=== PATIENT | male | born 1955 | race Caucasian/White ===

== ENCOUNTER 2017-07-15 07:29 | Emergency (ER) | payer BC ==
[~2017-07-15] VITALS: Ht 185.4 cm; Wt 122.5 kg
[~2017-07-15 07:29] MED LIST: ASPIRIN 81MG TA81 MG PO; MICARDIS80 MG PO; NEXIUM40 MG PO
[2017-07-15] MEDS ORDERED: HYZAAR1 TA1 PO (07:31)
[2017-07-15] MEDS ORDERED: HYDROCHLOROTH12.5 M1 PO (07:32)
[2017-07-15] MEDS ORDERED: OMEPRAZOLE40 MG PO (07:32)
--- NOTE | 2017-07-15 07:47 | Emergency Room Report ---
History of Present Illness Time Seen by [id number] Presenting Problem in Triage Pt arrived:Walked Presenting Problem:PT REPORTS SAW PCP 1 WEEK AGO, WAS REFERRED TO CARDIOLOGY R/T L SIDED CP. PT REPORTS SAW ARBORIST ON 07/14/17, BP MEDICATIONS WERE CHANGED, PT STATES AT THAT TIME PT BEGAN HAVING INCREASED BP. PT REPORTS L SIDED CP HAS CONTINUED, STATED YESTERDAY BEGAN HAVING PAIN BETWEEN HIS SHOULDER BLADES ALSO. Onset of symptoms date/time:/ or onset unknown for:MEDICAL HX UNKNOWN Treatment Prior to Arrival: TRAFFIC WORKER Provided by: Sepsis Risk Assessment: Temp: 98.1 B/P: 152/85 MAP: 107 Pulse: 63 Resp: 18 Recent fever? N Clinical Suspician of Infection? N Mental Status: 1 - Regular (Normal Baseline) Sepsis Risk:Low Sepsis Risk Have you (or family members/close friends) recently traveled outside the [place]? N If Yes, where/when: Have you had exposure to infectious disease within the past month? N TB? Other? Specify: Source patient, RN notes reviewed, family, old records Exam Limitations no limitations Comment pt with ongoing chest pain with assoc bp elevated and presents today - he saw card last week for similiar pain and has had cath in 2016-pt has been compliant with meds Cardiac Chest Pain Chest pain indicative of cardiac Yes Timing/Duration 4-6 hours, constant Severity/Quality moderate, pressure Location central Chest Pain Radiation back Activities at Onset light activity Nitro Today/Relief no nitro taken today Aspirin Treatment Today 81 mg x 4, provided by ED Beta mandie treatment today no beta mandie taken Cardiac risk factors Uncontrolled HTN, + family history Prior Workup/Intervention cardiac cath Timing/Duration this morning Severity moderate ALLERGIES Coded Allergies: penicillin G (Mild, 11/22/15) Home Medications Reported Medications Telmisartan (Micardis) 80 MG PO DAILY ASPIRIN (Aspirin) 81 MG PO DAILY Hydrochlorothiazide (Hydrochlorothiazide 12.5MG) 12.5 MG PO DAILY Omeprazole (Omeprazole 40MG) 40 MG PO DAILY #90 (John BUNN,Vesna Solo) History Medical History General CAD? No Angina: Yes GA: No Hypertension? Yes Hyperlipidemia? No CHF? No DVT? No PE? No COPD? No Asthma? No Anemia? No GERD? Yes Gastric ulcers? No GI Bleed? No Hernia? No Thyroid Problems? No Hypothyroidism? No CVA? No Seizures? No Diabetes? No Insulin Dependent: No Insulin Pump: No Home FSBS? No Renal Insuffiency? No End Stage Renal Disease? No UTI? No Stones? No BPH? No GB Disease: Yes Nephritic Syndrome? No Asplenia? No Hepatitis? No Sickle Cell Disease? No Arthritis? No Migraines? No Cataracts? No Glaucoma? No MRSA? No HIV? No TB? No Anxiety? No Depression? No Cancer? No More? No Immunization Hx DT/Tetanus Unknown Flu NEVER Pneumonia NEVER Surgical Hx Previous Surgery?Y Cholecystectomy VASECTOMY Cataract(s) Tonsils And/Or Adenoids CARDIAC CATH X3 Family History Family Hx Diabetes Yes CAD Yes Hypertension No Hyperlipidemia No Cancer No TB No Social History Smoking Hx Smoker: Never Smoker Tobacco: No Alcohol Alcohol: No Drugs none (Vesna Lopez MD) Review of Systems All Other Systems Reviewed and Negative Constitutional denies fever Eyes denies drainage ENT denies: ear pain, epistaxis, throat pain. Respiratory denies cough, denies shortness of breath, denies wheezing Cardiovascular see HPI, chest pain, denies palpitations, denies syncope Gastrointestinal denies abdominal pain, denies diarrhea, denies vomiting Genitourinary denies: dysuria, frequency, hesitancy, hematuria. Musculoskeletal denies back pain, denies joint pain, denies joint swelling, denies neck pain Skin denies rash Psychiatric/Neurological see HPI, headache, denies seizure (Vesna Lopez MD) Physical Exam Vital Signs Vital Signs Date Time Temp Pulse Resp B/P Pulse O2 O2 Flow FiO2 Ox Delivery Rate 07/15 1151 97.9 64 18 134/87 95 07/15 1059 64 18 105/68 97 07/15 1006 59 18 130/83 97 07/15 0922 60 18 133/61 97 07/15 0833 64 18 138/86 96 07/15 0729 98.1 63 18 152/85 97 - WBC >12,000 or <4,000 or 10% bands? 2 or more SIRS Criteria Met? B/P:138/86 MAP:107 Creatinine >2.0? UA output<0.5ml/kg/hr for 2 hrs? Platelet count >100,000? Lactate >2.0mmol/1? INR >1.2 or PTT > than 60 sec? Evidence of Organ Dysfunction? Provider documented clinical suspician of infection? N Sepsis Criteria Count: 0 Sepsis Risk: Low Sepsis Risk General Appearance no apparent distress Eye Exam - bilateral eye PERRL, bilateral eye EOMI Ear, Nose, Throat normal ENT inspection Neck supple Respiratory Status No: respiratory distress. Lung Sounds bilateral: lungs clear. Cardiovascular regular rate/rhythm, systolic murmur Peripheral Pulses Pulses normal Yes Gastrointestinal soft, no organomegaly Extremities normal inspection Strength 4 Upper Ext (L), 4 Upper Ext (R), 4 Lower Ext (L), 4 Lower Ext (R) Neurologic alert, manufacturing engineering technologist II-XII nml as tested, no motor/sensory deficits Reflexes Reflexes normal No Mental status normal mood/affect Skin intact (John BUNN,Vesna Banda) Medical Decision Making LABS/Meds/Orders Pt receiving controlled substance in ED? No Results/Orders Laboratory Tests 07/15/17 1012: Troponin I < 0.02 07/15/17 0730: Sodium 140, Potassium 4.1, Chloride 105, Carbon Dioxide 31, BUN 14, Creatinine 0.9, Estimated Creat Clear 153, Estimated GFR (MDRD) 86, Glucose 117 H, Calcium 8.5, Total Bilirubin 1.0, AST 15, ALT 27, Alkaline Phosphatase 86, Creatine Kinase 188, CK-MB (CK-2) Rel Index 0.3, CK and CKMB Interp 0.5, Troponin I < 0.02, Total Protein 6.9, Albumin 3.5, Globulin 3.4 H, Albumin/Globulin Ratio 1.0 L, WBC 7.5, RBC 4.75, Hgb 15.3, Hct 43.9, MCV 92.5, RDW 13.0, Plt Count 248 , MPV 7.8, Gran % 60.1, Gran # 4.5, Lymphocytes % 32.9, Monocytes % 5.3, Eosinophils % 1.3, Basophils % 0.4, Lymphocytes # 2.5, Monocytes # 0.4, Eosinophils # 0.1, Basophils # 0.0, PUBS MCHC 34.7, MCH 32.1 H Current Medication Orders Sig/Syeda Start time Last Medication Dose Route Stop Time Status Admin Famotidine 0 .STK-MED ONE 07/15 932 DC IV Metoclopramide HCl 0 .STK-MED ONE 07/15 931 DC .ROUTE Famotidine 20 MG ONCE ONE 07/15 900 DC 07/15 IV 07/15 09 0934 Metoclopramide HCl 10 MG ONCE ONE 07/15 09 DC 07/15 IVP 07/15 901 0933 Sodium Chloride 8 ML ONCE ONE 07/15 900 DC IV 07/15 09 Aspirin 324 MG ONCE ONE 07/15 0745 DC 07/15 PO 07/15 0746 0733 Sodium Chloride 10 ML PRN PRN 07/15 0745 DCD IV 07/16 0731 Orders Procedure Date/time Status TROPONIN I 07/15 1030 Complete ELECTROCARDIOGRAM REQUEST 07/15 0732 Active IV SALINE LOCK 07/15 0732 Active CBC WITH AUTO DIFF 07/15 0732 Complete CARDIAC ENZYMES 07/15 0732 Complete CHEM 12 PROFILE 07/15 0732 Complete 12 LEAD EKG-ADONAY (INITIAL) 07/15 UNK Active CM/EKG CM/planning associate Rhythm Normal Sinus Rhythm EKG compared w/(date of old), non-spec. ST/Twave chgs XRAY/CT/US XRAY/CT/US 1 XRAY chest XR interpretation by reviewed by me Xray Results normal/NAD XRAY/CT/US 2 Ultrasound cardiac echo US Interpretation by discussed w/radiologist US results normal HARRISON Score for N-Stemi/Angina HARRISON N-STEMI SCORE HARRISON N-STEMI SCORE Response Value Age of patient Less than 65 yrs 0 Number of risk factors for CAD Presence of 3 or more 1 Prior coronary artery stenosis (seen in angiography) Less than 50% 0 ST-Segment deviation on ECG (>1 min) Absent 0 Prior aspirin intake ASA intake in last 7 days 1 Severe anginal chest pain 2 or more episodes/24hr 1 Elevated cardiac markers(CK-MB or troponin) Absent 0 Total 3 Risk Stratification 3-4= Medium Risk Patients (John BUNN,Vesna Banda) Progress - 11:39 AM: Patient seen by cardiology and they recommend discharge. They have transmitted prescriptions. (Jonatan Adams MD) Departure Departure Time of Disposition 0856 Disposition Still a Patient Clinical Impression Primary Impression: Chest pain Qualifiers: Chest pain type: unspecified Qualified Code: R07.9 - Chest pain, unspecified Secondary Impressions: HTN (hypertension) Qualifiers: Hypertension type: essential hypertension Qualified Code: I10 - Essential (primary) hypertension Condition STABLE Referrals Janneth Ramirez APRN (Family) discussed with [facility] Critical Care Critical Care No (Vesna Lopez MD) Departure Patient Instructions DI for Chest Pain Additional Instructions Additional instructions for CHEST PAIN: Follow-up with cardiology as instructed. Return immediately if worsening chest pain, vomiting, shortness of breath, fever, coughing of blood. (Jonatan Adams MD) at 0857 at 1600
[2017-07-15 07:56] LABS: HEMOGLOBIN 15.3 g/dL (14.1-18.0); LYMPH # 2.5 K/mm3 (0.7-4.5); LYMPH % 32.9 % (10-50)
[2017-07-15 08:15] LABS: BUN 14 mg/dL (7-18); GFR (ESTIMATED) 86 ML/MIN (>60)
--- NOTE | 2017-07-15 09:40 | RADIOLOGY REPORT PS360 ---
CHEST(2 VIEWS-NOT PORTABLE) HISTORY: CP ORDERING PHYSICIAN: Vesna Lopez MD PATIENT AGE: 61 years COMPARISON: FINDINGS: The cardiomediastinal silhouette and pulmonary vascularity are within normal limits. The lungs are clear without infiltrates, suspicious nodules, or pleural effusions. No acute bony abnormalities. IMPRESSION: Negative chest, no acute finding
--- NOTE | 2017-07-15 11:42 | CONSULT NOTE ---
Standard Demographics Patient Demo Date of Consultation: 07/15/17 Referring Provider: Nicol Lopez MD Reason for Consultation: Chest pain PRIMARY DIAGNOSIS: Chest pain Problem list Problem list: 1. Hypertension 2. Gastroesophageal reflux disease 3. History of cardiac catheterization, [facility], 2009, no need for intervention. A. History of cardiac stress testing, 2016, reportedly normal. History of present illness: History of present illness: 61-year-old white male presented emergency department for evaluation of chest pain. Initial workup by ER physician unremarkable with normal troponin and electrocardiogram is sinus and unremarkable. Cardiology consulted for evaluation. Recommended obtaining echocardiogram and a second troponin with evaluation thereafter. Past Medical History: General: Hypertension Yes CVA No Seizures No TB No COPD No Asthma No Diabetes No Insulin Dependent No Insulin Pump No Angina Yes [place] No Hyperlipidemia No Cancer No Ulcers No MRSA No GB Disease Yes Past Surgical HX: Previous Surgery?Y Cholecystectomy VASECTOMY Cataract(s) Tonsils And/Or Adenoids CARDIAC CATH X3 Allergies Coded Allergies: penicillin G (Mild, 11/22/15) Home medications: Reported Medications Telmisartan (Micardis) 80 MG PO DAILY ASPIRIN (Aspirin) 81 MG PO DAILY Hydrochlorothiazide (Hydrochlorothiazide 12.5MG) 12.5 MG PO DAILY Omeprazole (Omeprazole 40MG) 40 MG PO DAILY #90 Current Medications: Current Medications Famotidine 0 .STK-MED ONE IV (DC) Metoclopramide HCl 0 .STK-MED ONE .ROUTE (DC) Famotidine 20 MG ONCE ONE IV (DC) Metoclopramide HCl 10 MG ONCE ONE IVP (DC) Sodium Chloride 8 ML ONCE ONE IV (DC) Aspirin 324 MG ONCE ONE PO (DC) Sodium Chloride 10 ML PRN PRN IV Immunization HX DT/Tetanus Unknown Flu NEVER Pneumonia NEVER Family history Family HX Family Hx Insignificant No Diabetes Yes CAD Yes Hypertension No Hyperlipidemia No Cancer No TB No Social Hx: Smoking HX Tobacco No Alcohol Alcohol: No Hx of Drug Use Drug Use? No Patien't marital status is Patient's support system is good Review of systems: Constitutional No: no symptoms reported. Respiratory SOB with excertion. Cardiovascular see HPI, chest pain Gastrointestinal/Abdominal No no symptoms reported Genitourinary No: no symptoms reported. Musculoskeletal No: no symptoms reported. Neurological No: no symptoms reported. Exam: Admission Vital Signs: 1ST Vital Signs Result Date Time Pulse Ox 97 07/15 07 B/P 152/85 07/15 07 Temp 98.1 07/15 07 Pulse 63 07/15 0729 Resp 07/15 Last Vital Signs: Vital Signs Result Date Time Pulse Ox 97 07/15 1059 B/P 105/68 07/15 1059 Pulse 64 07/15 1059 Resp 18 07/15 1059 Temp 98.1 07/15 729 Exam General appearance: alert, awake, no acute distress Neck: no carotid bruit, no JVD Cardiovascular: regular rate & rhythm, no murmur Respiratory: clear to auscultation, good air movement ABD: soft, no tenderness Extremities: moves all, no peripheral edema Neuro: alert, intact, oriented Laboratory data: Laboratory Tests 07/15/17 1012: Troponin I < 0.02 07/15/17 0730: Sodium 140, Potassium 4.1, Chloride 105, Carbon Dioxide 31, BUN 14, Creatinine 0.9, Estimated Creat Clear 153, Estimated GFR (MDRD) 86, Glucose 117 H, Calcium 8.5, Total Bilirubin 1.0, AST 15, ALT 27, Alkaline Phosphatase 86, Creatine Kinase 188, CK-MB (CK-2) Rel Index 0.3, CK and CKMB Interp 0.5, Troponin I < 0.02, Total Protein 6.9, Albumin 3.5, Globulin 3.4 H, Albumin/Globulin Ratio 1.0 L, WBC 7.5, RBC 4.75, Hgb 15.3, Hct 43.9, MCV 92.5, RDW 13.0, Plt Count 248 , MPV 7.8, Gran % 60.1, Gran # 4.5, Lymphocytes % 32.9, Monocytes % 5.3, Eosinophils % 1.3, Basophils % 0.4, Lymphocytes # 2.5, Monocytes # 0.4, Eosinophils # 0.1, Basophils # 0.0, PUBS MCHC 34.7, MCH 32.1 H Plan: Assessment: 1. Chest pain with atypical features. Troponins normal 2. Echocardiogram reviewed by Dr. URIAH Hicks with only mild age/hypertension-related changes noted. Normal LV size and function with no significant valvular heart disease. 2. Hypertension 3. Gastroesophageal reflux disease 4. Suspected KARMEN for which patient will have sleep study in the near future Recommendations: 1. Patient may be discharged home from a cardiac standpoint 2. Prescription for amlodipine 2.5 mg daily when necessary for systolic blood pressure greater than 1 40 mmHg with be called into his pharmacy. 3. He will see us back in his previous scheduled appointment in the office. at [phone]
[2017-07-15 11:51] VITALS: BP 134/87
--- NOTE | 2017-07-15 13:41 | RADIOLOGY REPORT PS360 ---
PROCEDURE: 2-D M-mode and color Doppler study INDICATIONS FOR THE TEST: Chest pain + COPD Heart Murmur+ Tobacco Smoking Palpitations Fatigue Syncope Edema+ Hypertension+Diabetes Mellitus Rheumatic Fever SOB HORNER Obesity Hyperlipidemia Family History HD Additional History PATIENT INFORMATION HEIGHT: 73 WEIGHT:220 GENDER: Male B/P:153/87 2-D/M-MODE INTERPRETATION: 2-D MEASUREMENTS OBSERVED VALUES IN CMS Right Ventricular Dimension (RVDd) 2.6 Interventricular Septum (Thickness)(IVsd) 1.3 Left Ventricular Internal Dimensions(LVIDd) 4.5 Left Ventricular Posterior Wall (Thickness)(LVPWd) 1.2 Aortic Root 3.5 Aortic Cusp Separation 1.5 Left Atrial Dimensions (LAD) 4.3 2D 1. Left atrium is mildly enlarged, left ventricle is normal size, there is mild concentric left ventricular hypertrophy present, visually estimated ejection fraction of 55% with no obvious regional wall motion abnormality. 2. The right atrium is normal size, right ventricle is mildly enlarged with normal contractility. 3. The aortic valve is minimally thickened and fibrosed. 4. The mitral and tricuspid valve are grossly normal. 5. The pulmonic valve is poorly visualized. 6. No significant pericardial effusion noted. DOPPLER INTERROGATION: Doppler interrogation of the aortic, mitral and tricuspid valvular presence of mild mitral and tricuspid regurgitation, tricuspid regurgitant jet velocity insufficient for calculation of the right ventricular systolic pressure, grade 1 diastolic dysfunction seen without tissue Doppler evidence of raised left atrial pressure. CONCLUSION: 1. Mildly enlarged left atrium, normal left ventricular size, mild concentric left ventricular hypertrophy present, visually estimated ejection fraction 55% with no obvious regional wall motion abnormality, grade 1 diastolic dysfunction seen without tissue Doppler evidence of raised left atrial pressure. 2. Mild mitral and tricuspid regurgitation. 3. No significant pericardial effusion noted.
== END 2017-07-15 11:51 | disposition home or self-care (01) ==
LOC: ER 07:29
PROVIDERS: Emergency Medicine
DX: R07.9 Chest pain, unspecified (principal); I10 Essential (primary) hypertension; Z88.0 Allergy status to penicillin; K21.9 Gastro-esophageal reflux disease without esophagitis; Z79.899 Other long term (current) drug therapy

== ENCOUNTER → 2017-07-18 | Outpatient (CLI) | payer BC ==
[~2017-07-18] MED LIST changes: +HYDROCHLOROTH12.5 M1 PO; +HYZAAR1 TA1 PO; +OMEPRAZOLE40 MG PO
== END ==
LOC: LAB 16:33
DX: K21.9 Gastro-esophageal reflux disease without esophagitis (principal)

== ENCOUNTER → 2017-08-05 | Outpatient (CLI) | payer BC ==
--- NOTE | 2017-08-07 09:36 | RADIOLOGY REPORT PS360 ---
MRI-BRAIN W/O HISTORY: Severe headache with dizziness and blurred vision NECK PAIN, BILATERAL HEADACHES ORDERING PHYSICIAN: Janneth Ramirez APRN PATIENT AGE: 61 years COMPARISON: None TECHNIQUE: Standard multiplanar multiecho sequences are performed without contrast. FINDINGS: No midline shift, mass effect, intracranial hemorrhage, or hydrocephalus is evident. The cerebellopontine angles, cerebellum, brainstem, and pituitary have an unremarkable appearance. There are scattered periventricular and subcortical T2 white matter hyperintensities which are nonspecific and may be related to ischemic gliotic change from microvascular disease. Differential diagnosis would include migraine headache. Demyelinating process is also included in the differential diagnosis but does not have a typical appearance for that entity. There is no evidence of acute infarction or abnormal restricted diffusion. The pituitary, optic chiasm, and corpus callosum are unremarkable. No cerebellar ectopia. The hippocampal gyri and temporal horns are unremarkable. No mastoid effusion. There is abnormal lobular signal intensity within the posterior aspect of the right ethmoid air cells and anterior aspect of the right sphenoid sinus measuring 1.9 x 1.5 cm isointense on T1 and slightly hyperintense on T2. While this could represent an inflammatory retention cyst, soft tissue mass such as neoplasm cannot be excluded. Suggest CT of the sinuses without and with contrast for further evaluation. IMPRESSION: 1. No acute intracranial findings. 2. Soft tissue mass versus postinflammatory retention cyst in the right sphenoid sinus and posterior ethmoid air cell region. Neoplasm is NOT excluded. Recommend CT of the sinuses without and with contrast for further evaluation to better evaluate bony detail and possible bony erosion.
--- NOTE | 2017-08-07 09:44 | RADIOLOGY REPORT PS360 ---
MRI-C-SPINE W/O, MRI-3D RENDERING/MYELOGRAM HISTORY: Neck pain, left-sided neck pain, numbness in left arm NECK PAIN, BILATERAL HEADACHES ORDERING PHYSICIAN: Janneth Ramirez APRN PATIENT AGE: 61 years COMPARISON: None TECHNIQUE: Standard multiplanar multiecho sequences are performed without contrast. 3-D MIP and myelographic images are also rendered and reviewed FINDINGS: There is normal alignment. The craniocervical junction has an unremarkable appearance. C2-C3: Unremarkable. C3-C4: Minimal left foraminal narrowing from uncovertebral and facet hypertrophy. C4-C5: Unremarkable. C5-C6: Minimal left foraminal narrowing from uncovertebral hypertrophy. C6-C7: Small broad-based central and right paracentral disc protrusion/herniation. There is narrowing of the canal this level at 10 mm. No cord impingement or flattening is evident. C7-T1: Unremarkable. IMPRESSION: 1. Mild cervical spondylosis with mild left foraminal narrowing at C3-C4 and C5-C6 from uncovertebral and facet hypertrophy. 2. Small broad-based central and right paracentral disc protrusion at C6-C7 with canal narrowing IMPRESSION: The liver. The bowel and time again in the aorta at the time
== END ==
LOC: RAD 13:29
DX: R51 Headache (principal); M54.2 Cervicalgia